=== PATIENT | male | born 1995 | race Caucasian/White ===

== ENCOUNTER 2017-02-10 12:12 | Emergency (ER) | payer BC ==
--- NOTE | 2017-02-10 13:53 | EDM.PDOC ---
ED HPI GENERAL MEDICAL PROBLEM - General Chief Complaint: Respiratory Problem Stated Complaint: HEADACHE, SORE THROAT Time Seen by Provider: 02/10/17 13:47 Source of Information: Reports: Patient, Family (father) History Limitations: Reports: No Limitations - History of Present Illness INITIAL COMMENTS - FREE TEXT/NARRATIVE: 21 yo c/o headache and sore throat X 2 days after attending hockey game. No Fever Onset Date: 02/09/17 Onset Time: 20:00 Duration: Day(s): Location: Reports: Face Severity: Mild Improves with: Reports: None Worsens with: Reports: None Context: Reports: Activity Associated Symptoms: Reports: No Other Symptoms Headache Pain Score (Numeric/FACES): 7 - Related Data Allergies Allergy/AdvReac Type Severity Reaction Status Date / Time erythromycin base Allergy Cannot Verified 02/10/17 12:32 Remember Sulfa (Sulfonamide Allergy Cannot Verified 02/10/17 12:32 Antibiotics) Remember Home Meds: Home Meds Calcium Carbonate [Calcium] 500 mg PO BID 02/10/17 [History] lamoTRIgine [Lamictal] 100 mg PO DAILY 02/10/17 [History] lamoTRIgine [Lamictal] 200 mg PO DAILY 02/10/17 [History] Past Medical History Cardiovascular History: Reports: None Respiratory History: Reports: None Gastrointestinal History: Reports: None Genitourinary History: Reports: None Musculoskeletal History: Reports: None Neurological History: Reports: Seizure Psychiatric History: Reports: None Endocrine/Metabolic History: Reports: None Hematologic History: Reports: None Immunologic History: Reports: None Oncologic (Cancer) History: Reports: None Dermatologic History: Reports: None - Infectious Disease History Infectious Disease History: Reports: None - Past Surgical History Head Surgeries/Procedures: Reports: None HEENT Surgical History: Reports: Tonsillectomy Social & Family History - Tobacco Use Smoking Status *Q: Never Smoker Second Hand Smoke Exposure: No - Caffeine Use Caffeine Use: Reports: Coffee - Recreational Drug Use Recreational Drug Use: No ED ROS GENERAL - Review of Systems Review Of Systems: See Below Constitutional: Reports: No Symptoms HEENT: Reports: Ear Pain, Throat Pain Respiratory: Reports: No Symptoms Cardiovascular: Reports: No Symptoms Endocrine: Reports: No Symptoms GI/Abdominal: Reports: No Symptoms : Reports: No Symptoms Musculoskeletal: Reports: No Symptoms Skin: Reports: No Symptoms Neurological: Reports: Headache Psychiatric: Reports: No Symptoms Hematologic/Lymphatic: Reports: No Symptoms Immunologic: Reports: No Symptoms ED EXAM, GENERAL - Physical Exam Exam: See Below Exam Limited By: No Limitations General Appearance: Alert, WD/WN, No Apparent Distress Eye Exam: Bilateral Eye: PERRL Ears: Normal External Exam Ear Exam: Bilateral Ear: TM Bulging Nose: Normal Inspection, Normal Mucosa Throat/Mouth: Normal Inspection, Normal Lips, Normal Teeth Head: Atraumatic, Normocephalic Neck: Normal Inspection, Supple, Non-Tender, Full Range of Motion Respiratory/Chest: No Respiratory Distress, Lungs Clear Cardiovascular: Normal Peripheral Pulses, Regular Rate, Rhythm Neurological: Alert, Oriented, CN II-XII Intact Psychiatric: Normal Affect Skin Exam: Warm, Intact Lymphatic: No Adenopathy Course - Vital Signs Last Recorded V/S: Last Vital Signs Temp 37.3 C 02/10/17 12:28 Pulse 90 02/10/17 12:28 Resp 16 02/10/17 12:28 BP 118/65 02/10/17 12:28 Pulse Ox 97 02/10/17 12:28 Departure - Departure Time of Disposition: 13:55 Disposition: Home, Self-Care 01 Condition: Good Clinical Impression: Congestion of paranasal sinus, Sore throat (viral) Head ache Qualifiers: Headache type: unspecified Headache chronicity pattern: acute headache Intractability: not intractable Qualified Code(s): R51 - Headache - Discharge Information Additional Instructions: Rest Increase intake of Fluids ( Water / Juice) Decrease intake of Mucus Producing foods ex. Dairy, Processed Foods Take the HEATH 180mg QD # 30 MEDROL DOSE NICK 4mg as directed # 1pack Try using Vics Caporizer to promote sinus drainage F/U w/ PCP
== END 2017-02-10 14:09 | disposition home or self-care (01) ==
LOC: DL.ED 12:12
DX: J02.8 Acute pharyngitis due to other specified organisms (principal); B97.89 Other viral agents as the cause of diseases classified elsewhere; R51 Headache; Z88.1 Allergy status to other antibiotic agents; Z88.2 Allergy status to sulfonamides; Z79.899 Other long term (current) drug therapy
CPT/HCPCS: 99283

== ENCOUNTER 2017-03-27 14:30 | Emergency (ER) | payer BC ==
--- NOTE | 2017-03-27 14:39 | EDM.PDOC ---
ED HPI GENERAL MEDICAL PROBLEM - General Chief Complaint: ENT Problem Stated Complaint: NOSEBLEED FOR 25 MINUTES [id number] Time Seen by Provider: 03/27/17 14:39 Source of Information: Reports: Patient, RN, RN Notes Reviewed History Limitations: Reports: No Limitations - History of Present Illness INITIAL COMMENTS - FREE TEXT/NARRATIVE: C/O recurrent nose bleeds x1 week, all from the left nostril. Denies injury, illness, or congestion. Today prior to arrival the left nostril began to bleed and he couldn't get it to stop for over 20 minutes, but it stopped once he arrived to the hospital. Duration: Recurring Location: Reports: Other (nose) Severity: Moderate Improves with: Reports: None Worsens with: Reports: None Associated Symptoms: Reports: No Other Symptoms - Related Data Allergies Allergy/AdvReac Type Severity Reaction Status Date / Time erythromycin base Allergy Cannot Verified 03/27/17 15:26 Remember Sulfa (Sulfonamide Allergy Cannot Verified 03/27/17 15:26 Antibiotics) Remember Home Meds: Home Meds Calcium Carbonate [Calcium] 500 mg PO BID 02/10/17 [History] lamoTRIgine [Lamictal] 100 mg PO QPM 02/10/17 [History] lamoTRIgine [Lamictal] 200 mg PO QAM 02/10/17 [History] Past Medical History Cardiovascular History: Reports: None Respiratory History: Reports: None Gastrointestinal History: Reports: None Genitourinary History: Reports: None Musculoskeletal History: Reports: None Neurological History: Reports: Seizure Psychiatric History: Reports: None Endocrine/Metabolic History: Reports: None Hematologic History: Reports: None Immunologic History: Reports: None Oncologic (Cancer) History: Reports: None Dermatologic History: Reports: None - Infectious Disease History Infectious Disease History: Reports: None - Past Surgical History Head Surgeries/Procedures: Reports: None HEENT Surgical History: Reports: Tonsillectomy Social & Family History - Tobacco Use Smoking Status *Q: Never Smoker Second Hand Smoke Exposure: No - Caffeine Use Caffeine Use: Reports: Coffee - Recreational Drug Use Recreational Drug Use: No - Living Situation & Occupation Living situation: Reports: Alone Occupation: Student ED ROS ENT - Review of Systems Review Of Systems: ROS reveals no pertinent complaints other than HPI. ED EXAM, ENT - Physical Exam Exam: See Below Exam Limited By: No Limitations General Appearance: Alert, WD/WN, No Apparent Distress Eye Exam: Bilateral Eye: Normal Inspection Ears: Normal External Exam, Normal Canal, Hearing Grossly Normal, Normal TMs Nose: Dried Blood, Other (left anterior septum with a 4mm sherie. area of superficial vessels which look to be the source of the bleeding). No: Clear Rhinorrhea, Nasal Deformity, Nasal Discharge, Nasal Swelling, Nasal Tenderness, Active Bleeding Mouth/Throat: Normal Inspection, Normal Gums, Normal Lips, Normal Oropharynx, Normal Teeth Head: Atraumatic, Normocephalic Neck: Normal Inspection, Supple, Non-Tender, Full Range of Motion Respiratory/Chest: No Respiratory Distress, Lungs Clear, Normal Breath Sounds, No Accessory Muscle Use, Chest Non-Tender Cardiovascular: Regular Rate, Rhythm Neurological: Alert, Oriented, CN II-XII Intact, Normal Cognition, Normal Gait, No Motor/Sensory Deficits Psychiatric: Normal Affect, Normal Mood Skin: Warm, Dry, Intact, Normal Color, No Rash ED ENT PROCEDURES - Epistaxis Procedure Indication: Epistaxis, Controlled Recent anticoagulants/antiplatlets: Yes Uncontrolled HTN: No Recent septal/nasal surgery: No Site of bleeding: Left Nare, Anterior Clearing of clots: Patient Blew Nose Topical Meds: Other (Afrin + Lidocaine 1% w/Epi mixed 1:1) Ice pack to area: No Chemical cautery: Silver Nitrate Topical Local anesthesia - Lidocaine (Xylocaine): 1% with EPI (topical) Local Anesthetic Volume: 2cc Complications: No Course - Vital Signs Last Recorded V/S: Last Vital Signs Temp 36.6 C 03/27/17 15:35 Pulse 61 03/27/17 15:35 Resp 16 03/27/17 15:35 BP 132/73 03/27/17 15:35 Pulse Ox 98 03/27/17 15:35 - Orders/Labs/Meds Meds: Medications Discontinued Medications Generic Name Dose Route Start Last Admin Trade Name Gabrielq PRN Reason Stop Dose Admin Lidocaine/Epinephrine 10 ml 03/27/17 15:36 03/27/17 15:53 Xylocaine 1% With Epinephrine 1:100,000 INJECT 03/27/17 15:37 10 ml ONETIME ONE Administration Oxymetazoline HCl 1 ml 03/27/17 15:36 03/27/17 15:52 Afrin Original 0.05% Nasal [place] PERRY 03/27/17 15:37 1 ml ONETIME ONE Administration Silver Nitrate 3 each 03/27/17 15:37 03/27/17 15:55 Silver Nitrate TOP 03/27/17 15:38 3 each ONETIME ONE Administration Departure - Departure Time of Disposition: 16:03 Disposition: Home, Self-Care 01 Condition: Good Clinical Impression: Epistaxis - Discharge Information Instructions: Nosebleed, [id number] Forms: ED Department Discharge Additional Instructions: Do not wipe, blow, rub, or pick your nose for one week. Tomorrow begin applying a small amount of vasoline gel into the left nostril with a Q-tip once or twice a day. If nose bleed returns use 2 large spays of the nose solution sent home from the ER with you, then pinch firm pressure to the nose for at least 15 minutes. Return to the ER if an uncontrolled nose bleed occurs.
[2017-03-27] MEDS ORDERED: Lidocaine 1% with EPINEPHrine 1:100,000 20 ML MDV INJECT ONE (15:36)
[2017-03-27] MEDS ORDERED: Oxymetazoline 0.05% Nasal Spray 15 ML Bottle NAS ONE (15:36)
[2017-03-27] MEDS ORDERED: Silver Nitrate Applicator Each TOP ONE (15:37)
== END 2017-03-27 16:10 | disposition home or self-care (01) ==
LOC: DL.ED 14:30
DX: R04.0 Epistaxis (principal); Z88.1 Allergy status to other antibiotic agents; Z88.2 Allergy status to sulfonamides
CPT/HCPCS: 30901; 99283; A9270

== ENCOUNTER 2017-10-03 07:01 | Emergency (ER) | payer OTHER, BC ==
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
[2017-10-03] MEDS ORDERED: Sodium Chloride 0.9% 10 ML Syringe FLUSH PRN (07:23)
[2017-10-03] MEDS ORDERED: Lactated Ringers 1,000 ML IV ONE (07:24)
[2017-10-03] MEDS ORDERED: Diphtheria,Pertussis(Acell),Tetanus Vaccine 0.5 ML SDV IM ONE (07:24)
[2017-10-03] MEDS ORDERED: fentaNYL 100 MCG/2 ML SDV IVPUSH ONE ×2 (07:25→09:03)
[2017-10-03] MEDS ORDERED: Ondansetron 4 MG/2 ML SDV IV ONE (07:25)
[2017-10-03] MEDS ORDERED: Iopamidol 612 MG/ML 100 ML Bottle IVPUSH ONE (07:32)
[2017-10-03 07:50] LABS: CHLORIDE,CL 105 mmol/L (101-111); SODIUM,NA 137 mmol/L (135-145)
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
[2017-10-03] MEDS ORDERED: Sodium Chloride 0.9% 1,000 ML IV ONE (09:03)
--- NOTE | 2017-10-03 18:25 | EKG ---
10/03/2017 - KYE MCNALLY - TIME: 8:32 a.m. FINDINGS: Sinus tachycardia at 102. [facility] /[id number]
== END 2017-10-03 09:33 ==
LOC: DL.ED 07:01
DX: S06.0X9A Concussion with loss of consciousness of unspecified duration, initial encounter (principal); S42.101A Fracture of unspecified part of scapula, right shoulder, initial encounter for closed fracture; S22.41XA Multiple fractures of ribs, right side, initial encounter for closed fracture; S11.91XA Laceration without foreign body of unspecified part of neck, initial encounter; S27.321A Contusion of lung, unilateral, initial encounter; S00.03XA Contusion of scalp, initial encounter; S60.512A Abrasion of left hand, initial encounter; S60.511A Abrasion of right hand, initial encounter; S80.212A Abrasion, left knee, initial encounter; S80.211A Abrasion, right knee, initial encounter; V49.49XA Driver injured in collision with other motor vehicles in traffic accident, initial encounter; Z88.1 Allergy status to other antibiotic agents; Z88.2 Allergy status to sulfonamides; Z79.899 Other long term (current) drug therapy; Z23 Encounter for immunization
CPT/HCPCS: 12002; 36415; 51702; 70450; 71260; 72125; 74177; 80053; 80305; 81001; 82150; 82962; 83690; 84484; 85025; 85610; 85730; 86850; 86900; 86901; 90471; 90715; 93005; 96360; 96361; 96372; 96374; 96375; 99291; 99292; G0480; J2405; J3010; J7030; J7120; Q9967

== ENCOUNTER 2020-09-14 21:22 | Emergency (ER) | payer BC ==
--- NOTE | 2020-09-14 21:56 | EDM.PDOC ---
ED HPI GENERAL MEDICAL PROBLEM - General Chief Complaint: Genitourinary Problem Stated Complaint: SIDE PAIN / FREQUENT URINATION Time Seen by Provider: 09/14/20 21:45 Source of Information: Reports: Patient History Limitations: Reports: No Limitations - History of Present Illness INITIAL COMMENTS - FREE TEXT/NARRATIVE: ED with c/o 5 day hx urinary frequency,urgency burning, ocassional dribbling. Denies fever or chills. Denies discharge. Denies risk for STD. - Related Data Allergies Allergy/AdvReac Type Severity Reaction Status Date / Time erythromycin base Allergy Cannot Verified 09/14/20 21:37 Remember Sulfa (Sulfonamide Allergy Cannot Verified 09/14/20 21:37 Antibiotics) Remember Home Meds: Home Meds Calcium Carbonate [Calcium] 500 mg PO BID 02/10/17 [History] lamoTRIgine [Lamictal] 100 mg PO QPM 02/10/17 [History] lamoTRIgine [Lamictal] 200 mg PO QAM 02/10/17 [History] Past Medical History Cardiovascular History: Reports: None Respiratory History: Reports: None Gastrointestinal History: Reports: None Genitourinary History: Reports: None Musculoskeletal History: Reports: None Neurological History: Reports: Seizure Psychiatric History: Reports: None Endocrine/Metabolic History: Reports: None Hematologic History: Reports: None Immunologic History: Reports: None Oncologic (Cancer) History: Reports: None Dermatologic History: Reports: None - Infectious Disease History Infectious Disease History: Reports: None - Past Surgical History Head Surgeries/Procedures: Reports: None HEENT Surgical History: Reports: Tonsillectomy Social & Family History - Family History Family Medical History: No Pertinent Family History - Tobacco Use Tobacco Use Status *Q: Never Tobacco User - Caffeine Use Caffeine Use: Reports: Coffee - Recreational Drug Use Recreational Drug Use: No - Living Situation & Occupation Living situation: Reports: Alone Occupation: Employed ED ROS GENERAL - Review of Systems Review Of Systems: Comprehensive ROS is negative, except as noted in HPI. ED EXAM, RENAL/ - Physical Exam Exam: See Below Exam Limited By: No Limitations General Appearance: Alert, No Apparent Distress Eye Exam: Bilateral Eye: EOMI Ears: Normal External Exam Nose: Normal Inspection Throat/Mouth: Normal Inspection Head: Atraumatic, Normocephalic Neck: Normal Inspection Respiratory/Chest: No Respiratory Distress, Lungs Clear, Normal Breath Sounds, No Accessory Muscle Use Cardiovascular: Normal Peripheral Pulses, Regular Rate, Rhythm GI/Abdominal: Normal Bowel Sounds, Soft Back Exam: Normal Inspection, Full Range of Motion Extremities: Normal Inspection, Normal Range of Motion Neurological: Alert, Oriented, Normal Cognition Psychiatric: Normal Affect, Normal Mood Skin Exam: Warm, Dry, Intact, Normal Color Course - Vital Signs Last Recorded V/S: Last Vital Signs Temp 97.6 F 09/14/20 21:37 Pulse 86 09/14/20 21:37 Resp 20 09/14/20 21:37 BP 148/88 H 09/14/20 21:45 Pulse Ox 100 09/14/20 21:37 - Orders/Labs/Meds Orders: Active Orders 24 hr Category Date Time Status CULTURE URINE [RM] Stat Lab 09/14/20 21:44 Received Labs: Laboratory Tests 09/14/20 Range/Units 21:44 Urine Color Light yellow (YELLOW) Urine Appearance Slightly cloudy (CLEAR) Urine pH 6.5 (5.0-9.0) Ur Specific [place] 1.010 (1.005-1.030) Urine Protein Negative (NEGATIVE) Urine Glucose (UA) Negative (NEGATIVE) Urine Ketones Negative (NEGATIVE) Urine Occult Blood Negative (NEGATIVE) Urine Nitrite Negative (NEGATIVE) Urine Bilirubin Negative (NEGATIVE) Urine Urobilinogen 0.2 (0.2-1.0) mg/dL Ur Leukocyte Esterase Small H (NEGATIVE) Urine RBC 0-5 /HPF Urine WBC 0-5 (0-5/HPF) /HPF Ur Epithelial Cells Rare (NOT SEEN) /HPF Urine Bacteria Rare (0-FEW/HPF) /HPF Meds: Medications Discontinued Medications Generic Name Dose Route Start Last Admin Trade Name Lalo PRN Reason Stop Dose Admin Ciprofloxacin 500 mg 09/14/20 22:06 09/14/20 22:16 Ciprofloxacin 500 Mg Tab PO 09/14/20 22:07 500 mg ONETIME ONE Administration Departure - Departure Time of Disposition: 22:08 Disposition: Home, Self-Care 01 Condition: Good Clinical Impression: UTI, Urinary tract infectious disease - Discharge Information *PRESCRIPTION DRUG MONITORING PROGRAM REVIEWED*: No *COPY OF PRESCRIPTION DRUG MONITORING REPORT IN PATIENT GREG: No Instructions: Urinary Tract Infection, Adult, [id number] Referrals: Malorie Turner MD [Primary Care Provider] - Forms: ED Department Discharge Additional Instructions: increase fluids increase frequency of voiding avoid bladder irritants,- soda spicy foods cipro 500mg one twice [facility] clinic follow up Sunday if symptoms not improving, sooner if fever chills worsening pain Sepsis Event Note (ED) - Evaluation Sepsis Screening Result: No Definite Risk - Focused Exam Vital Signs: Vital Signs Temp Pulse Resp BP Pulse Ox 09/14/20 21:45 148/88 H 09/14/20 21:37 97.6 F 86 20 161/99 H 100 - My Orders Last 24 Hours: My Active Orders 09/14/20 21:44 CULTURE URINE [RM] Stat - Assessment/Plan Last 24 Hours: My Active Orders 09/14/20 21:44 CULTURE URINE [RM] Stat
[2020-09-14] MEDS ORDERED: Ciprofloxacin 500 MG Tab PO ONE (22:06)
== END 2020-09-14 22:25 | disposition home or self-care (01) ==
LOC: DL.ED 21:22
DX: N39.0 Urinary tract infection, site not specified (principal); Z88.1 Allergy status to other antibiotic agents; Z88.2 Allergy status to sulfonamides
CPT/HCPCS: 81001; 87086; 99283; A9270

== ENCOUNTER 2021-04-05 00:31 | Emergency (ER) | payer BC ==
--- NOTE | 2021-04-05 00:49 | EDM.PDOC ---
ED HPI GENERAL MEDICAL PROBLEM - General Chief Complaint: Head Injury Stated Complaint: CONCUSSION, FELL IN THE [employer]AGUE Time Seen by Provider: 04/05/21 00:38 Source of Information: Reports: Patient History Limitations: Reports: No Limitations - History of Present Illness INITIAL COMMENTS - FREE TEXT/NARRATIVE: ED with c/o head injury .Reports fall while curling. Fell backward landed on butt then backwards hitting back of head. no tender areas, no neck pain, no laoss of consciousness, Roomamte thought he should get checked out as patient has hx of epilepsy. Last seizure 12 years ago. Onset: Sudden - Related Data Allergies Allergy/AdvReac Type Severity Reaction Status Date / Time erythromycin base Allergy Cannot Verified 09/14/20 21:37 Remember Sulfa (Sulfonamide Allergy Cannot Verified 09/14/20 21:37 Antibiotics) Remember Home Meds: Home Meds Calcium Carbonate [Calcium] 500 mg PO BID 02/10/17 [History] lamoTRIgine [Lamictal] 100 mg PO QPM 02/10/17 [History] lamoTRIgine [Lamictal] 200 mg PO QAM 02/10/17 [History] Past Medical History Cardiovascular History: Reports: None Respiratory History: Reports: None Gastrointestinal History: Reports: None Genitourinary History: Reports: None Musculoskeletal History: Reports: None Neurological History: Reports: Seizure Psychiatric History: Reports: None Endocrine/Metabolic History: Reports: None Hematologic History: Reports: None Immunologic History: Reports: None Oncologic (Cancer) History: Reports: None Dermatologic History: Reports: None - Infectious Disease History Infectious Disease History: Reports: None - Past Surgical History Head Surgeries/Procedures: Reports: None HEENT Surgical History: Reports: Tonsillectomy Social & Family History - Family History Family Medical History: No Pertinent Family History - Caffeine Use Caffeine Use: Reports: Coffee - Living Situation & Occupation Living situation: Reports: Alone Occupation: Employed ED ROS GENERAL - Review of Systems Review Of Systems: Comprehensive ROS is negative, except as noted in HPI. ED EXAM, HEAD INJURY - Physical Exam Exam: See Below Exam Limited By: No Limitations General Appearance: Alert, Mild Distress Head: Atraumatic, Normocephalic Nexus Criteria: No: Posterior, Midline Cervical Tenderness, Evidence of Intoxication, Altered Level of Consciousness, Focal Neurological Deficit, Painful Distraction Injuries Eyes: Bilateral Eye: EOMI Ears: Normal External Exam, Normal TMs Nose: Normal Inspection, Normal Mucousa Throat/Mouth: Normal Inspection Neck: Non-Tender, Full Range of Motion, Normal Alignment, Normal Inspection Respiratory: No Respiratory Distress, Lungs Clear, Normal Breath Sounds Cardiovascular: Normal Peripheral Pulses, Regular Rate, Rhythm GI/Abdominal Exam: Normal Bowel Sounds, Soft Extremities: Normal Inspection, Normal Range of Motion 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, No Motor/Sensory Deficits Skin: Normal Color, Warm/Dry - Oscar Coma Score Best Eye Response (Oscar): (4) Open Spontaneously Best Verbal Response (Harvey): (5) Oriented Best Motor Response (Harvey): (6) Obeys Commands Course - Vital Signs Last Recorded V/S: Last Vital Signs Temp 99.4 F 04/05/21 00:45 Pulse 90 04/05/21 00:45 Resp 18 04/05/21 00:45 BP 140/95 H 04/05/21 00:45 Pulse Ox 97 04/05/21 00:45 Departure - Departure Time of Disposition: 00:49 Disposition: Home, Self-Care 01 Condition: Good Clinical Impression: Contusion of head Qualifiers: Encounter type: initial encounter Contusion of head detail: unspecified part of head Qualified Code(s): S00.93XA - Contusion of unspecified part of head, initial encounter - Discharge Information *PRESCRIPTION DRUG MONITORING PROGRAM REVIEWED*: No *COPY OF PRESCRIPTION DRUG MONITORING REPORT IN PATIENT GREG: No Instructions: Concussion, Adult Forms: ED Department Discharge Additional Instructions: tylenol 500 mg every 4 hours as needed for discomfort light activity tonight minimal screen time next 48 hours follow up balance problems, dizzy vomiting, continue home medications Sepsis Event Note (ED) - Focused Exam Vital Signs: Vital Signs Temp Pulse Resp BP Pulse Ox 04/05/21 00:45 99.4 F 90 18 140/95 H 97
== END 2021-04-05 00:59 | disposition home or self-care (01) ==
LOC: DL.ED 00:31
DX: S00.83XA Contusion of other part of head, initial encounter (principal); Z88.2 Allergy status to sulfonamides; Z88.1 Allergy status to other antibiotic agents; W18.09XA Striking against other object with subsequent fall, initial encounter
CPT/HCPCS: 99283